=== PATIENT | male | born 1950 | race African-American/Black ===

== ENCOUNTER → 2017-06-19 | Outpatient (CLI) | payer MEDICARE ==
--- NOTE | 2017-06-19 11:42 | ECHOS ---
STRESS ECHOCARDIOGRAM DATE OF SERVICE: 06/19/2017 INDICATIONS: Abnormal EKG. MEDICATIONS: Metoprolol. BASELINE HEART RATE: 95 BASELINE BLOOD PRESSURE: 116/65 MAXIMUM HEART RATE: 146 MAXIMUM BLOOD PRESSURE: 153/64 85% MPHR: 132 100% MPHR: 155 METS: 5.8 MAXIMUM STAGE REACHED: II TOTAL EXERCISE TIME: 4 minutes CLINICAL INFORMATION: STRESS DATA: Pretesting physical examination showed a heart rate of 95. Pressure is 116/65 mmHg. Baseline EKG showed sinus mechanism with intraventricular conduction delay and possible LVH. The patient exercised on the treadmill according to Deandre protocol for a total of 4 minutes and achieved 5.8 METs. Max heart rate was 146, which is about 94% of maximum predicted heart rate. Maximum blood pressure was 153/64 mmHg. Clinically, the patient did not have any symptoms of chest pain or discomfort. The EKG showed during exercise about [address]-segment changes, which likely represents worsening baseline EKG. ECHOCARDIOGRAM IMAGES: On echocardiogram images from parasternal long axis view, parasternal short axis view, apical 4 chamber and apical 2 chamber view were obtained as the baseline images, at the peak of the heart rate as well as on recovery. The echocardiogram images did not show any obvious wall motion abnormalities consistent with ischemia. CONCLUSION: 1. Poor exercise capacity. 2. Mildly abnormal EKG changes in response to exercise, likely represent the worsening baseline changes. 3. Normal echocardiogram in response to exercise. MMODL / IJN: [id number] /
== END | disposition home or self-care (01) ==
LOC: RADNMMAIN 09:09
PROVIDERS: ATTEND Internal Medicine
DX: R94.31 Abnormal electrocardiogram [ECG] [EKG] (principal); I44.7 Left bundle-branch block, unspecified
CPT/HCPCS: 93017; 93350

== ENCOUNTER → 2018-12-18 | Outpatient (CLI) | payer MEDICARE ==
--- NOTE | 2018-12-18 14:32 | US ---
EXAMINATION TYPE: US venous doppler duplex LE LT DATE OF EXAM: 12/18/2018 2:17 PM COMPARISON: NONE CLINICAL HISTORY: 68-year-old male R22.42 SWELLING OF LT LEG. Left lower leg swelling. No hx of bloo d clots. Not on blood thinners. Patient states having a recent achilles injury. SIDE PERFORMED: Left TECHNIQUE: The lower extremity deep venous system is examined utilizing real time linear array sonog russell with graded compression, doppler sonography and color-flow sonography. FINDINGS: VESSELS IMAGED: External Iliac Vein (EIV) Common Femoral Vein Deep Femoral Vein Greater Saphenous Vein * Femoral Vein Popliteal Vein Small Saphenous Vein * Proximal Calf Veins (* superficial vessels) Left Leg: Negative for DVT. Rn Transplant notes: In popliteal vein, areas of dilatation visualized, Proximal = 1.6 cm with prominen t valve seen. Distal= 1.4 cm. IMPRESSION: 1. No evidence for DVT within the left lower extremity imaged from the groin to the upper calf. 2. A couple incidental areas of fusiform ectasia involving the popliteal vein measuring up to 1.6 cm in diameter.
== END | disposition home or self-care (01) ==
LOC: RADUSWWP 13:47
PROVIDERS: ATTEND Internal Medicine
DX: I87.8 Other specified disorders of veins (principal); R22.42 Localized swelling, mass and lump, left lower limb